=== PATIENT | female | born 1965 | race Caucasian/White ===

== ENCOUNTER 2017-01-15 21:07 | Emergency (ER) | payer OTHER ==
[2017-01-15 21:21] VITALS: TEMP 98.2
--- NOTE | 2017-01-15 21:45 | EDPHY ---
H & P Stated Complaint: bright red blood x 3 since 1500 today. hx of hemorrhoid banding in 2015. Time Seen by Provider: 01/15/17 21:24 HPI/ROS: This patient reports 3 episodes of bright red blood per rectum started at 3:30 a.m. this afternoon, repeat episode at 5:00 p.m. and 8:00 p.m.. She states the blood filled the toilet bowl on each occasion. She has not had this symptom before. She reports mild abdominal bloating associated with this and denies any other associated symmetric symptoms. She is brought in by her for further evaluation by private vehicle. She reports that she has otherwise felt well recently. ROS: Constitutional: No fevers. No significant fatigue. HEENT: No symptoms Pulmonary: No shortness of breath. No cough. Cardiovascular: No heart palpitations or lightheadedness. No chest pain GI: As per HPI. No dark tarry stools. No nausea or vomiting. : No urinary symptoms Integumentary: No pallor or skin rash Endocrine: No complaints Hematologic: No recent easy bruising or bleeding Neuro: No complaints Complete review of symptoms is otherwise negative. Source: Patient Exam Limitations: No limitations - Personal History LMP (Females 10-55): 15-21 Days Ago Current Tetanus Diphtheria and Acellular Pertussis (TDAP): Unsure - Medical/Surgical History PMH: Mild anemia External hemorrhoids with band Hx Asthma: No Hx Chronic Respiratory Disease: No Hx Diabetes: No Hx Cardiac Disease: No Hx Renal Disease: No Hx Cirrhosis: No Hx Alcoholism: No Hx HIV/AIDS: No Hx Splenectomy or Spleen Trauma: No Other PMH: Left shoulder surgery, tonsillectomy, left knee surgery, elbow surgery, adenoidectomy, hemorrhoid banding. 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 Eyes: Pupils equal and round no pallor or injection. ENT, Mouth: Mucous membranes moist. Respiratory: There are no retractions, lungs are clear to auscultation. Cardiovascular: Regular rate and rhythm. Gastrointestinal: Abdomen is soft and nontender, no masses, bowel sounds normal. Rectal exam: Very small nontender external hemorrhoid 3 o'clock in lithotomy position without evidence of thrombosis or bleeding. This is 1 cm x 5 mm in size she has good rectal tone and stool is bright red appearing. No significant tenderness to the anal canal or clinical evidence of fissure Neurological: GCS 15 Skin: Warm and dry, no rashes Extremities are symmetrical, full range of motion. Psychiatric: Mood and affect are normal DIFFERENTIAL DIAGNOSIS: After history and physical exam differential diagnosis was considered for internal hemorrhoid, colon polyp, colon cancer, hematologic disorder, thrombocytopenia Meckel's diverticulum Constitutional: Initial Vital Signs Temperature (C) 36.8 C 01/15/17 21:19 Heart Rate 72 01/15/17 21:19 Respiratory Rate 16 01/15/17 21:19 Blood Pressure 129/85 H 01/15/17 21:19 O2 Sat (%) 95 01/15/17 21:19 O2 Delivery Mode Room Air Allergies/Adverse Reactions: erythromycin base [Erythromycin Base] Allergy (Verified 01/15/17 21:18) bee stings Allergy (Uncoded 01/15/17 21:18) Home Medications: Medication Instructions Recorded Aspirin [Aspirin 81mg (*)] 01/15/17 Medical Decision Making ED Course/Re-evaluation: IV is established. Patient remained stable without further complaints. She is neurovascular intact without your orthostatic findings, anemia or other red flag findings Review of her labs reveals a normal CBC and electrolytes. Her guaiac stool test is positive I counseled her regarding rectal bleeding. She will follow up with Dr. Townsend - GI specialist for further evaluation. I explained that she warranted a colonoscopy given her symptoms as an outpatient. Explained that the majority of these cases have resolution of rectal bleeding without specific intervention but she understands the need to return emergency department if she develops worsening symptoms, ongoing bleeding last beyond the next 24 hours or other new symptoms. - Data Points Laboratory Results: Laboratory Results 01/15/17 21:50 01/15/17 21:50 Departure - Departure Disposition: Home, Routine, Self-Care Clinical Impression: Rectal bleeding Condition: Good Instructions: Rectal Bleeding (ED) Additional Instructions: Diagnosis: Rectal bleeding Your blood count tonight is normal with normal platelet count and no anemia. Your electrolytes are also normal tonight. You may have an internal hemorrhoid or a polyp causing your bleeding. Plan: Call Dr. Townsend-financial risk manager tomorrow to arrange close follow-up for further evaluation as an outpatient. The vast majority of these cases of rectal bleeding resolved without intervention within 24 hours. Drink plenty of fluids. Light diet until he feel improved. Return emergency department if you have any significant worsening of her symptoms despite the treatment plan Referrals: Louise Sharif MD [Primary Care Provider] - As per Instructions Sin Townsend MD [Medical Doctor] - As per Instructions
[2017-01-15 21:54] LABS: % IMMATURE GRANULYOCYTES 0.2 % (0.0-1.1); ABSOLUTE IMMATURE GRANULOCYTES 0.01 10^3/uL (0.00-0.10); ADD DIFF? NO; ADD MORPH? NO; ADD SCAN? NO; ATYPICAL LYMPHOCYTE FLAG 10 (0-99); FRAGMENT RBC FLAG 0 (0-99); HEMATOCRIT 39.1 % (38.0-47.0); HEMOGLOBIN 13.5 g/dL (12.6-16.3); LEFT SHIFT FLG 0 (0-99); LIPEMIA HEMOLYSIS FLAG 90 (0-99); MEAN CELL HEMOGLOBIN 32.5 pg (27.9-34.1); MEAN CELL HEMOGLOBIN CONCENTR. 34.5 g/dL (32.4-36.7); MEAN CELL VOLUME 94.2 fL (81.5-99.8); MEAN PLATELET VOLUME 9.5 fL (8.7-11.7); PLATELET CLUMPS FLAG 0 (0-99); PLATELET COUNT 224 10^3/uL (150-400); RED BLOOD CELL COUNT 4.15 10^6/uL (4.18-5.33); RED CELL DISTRIBUTION WIDTH 12.7 % (11.5-15.2)
[2017-01-15 22:02] LABS: INR 0.97 (0.83-1.16); PROTIME(PATIENT) 12.6 SEC (12.0-15.0)
[2017-01-15 22:07] LABS: APTT 26.5 SEC (23.0-38.0)
[2017-01-15 22:09] LABS: ANION GAP 10 mEq/L (8-16); CARBON DIOXIDE 22 mEq/l (22-31); CHLORIDE 108 mEq/L (97-110); CREATININE 0.6 mg/dL (0.6-1.0); GLOMERULAR FILTRATION RATE > 60; GLUCOSE 120 mg/dL (70-100); POTASSIUM 3.7 mEq/L (3.5-5.2); SODIUM 140 mEq/L (134-144)
[2017-01-15 22:23] VITALS: RESP 14
[2017-01-15 22:44] VITALS: BP 107/84; PULSE 71; O2SAT 96
== END 2017-01-15 22:40 | disposition home or self-care (01) ==
LOC: CED 21:07
DX: K62.5 Hemorrhage of anus and rectum (principal)
CPT/HCPCS: 80048-PO; 82270-PO; 85025-PO; 85610-PO; 85730-PO